=== PATIENT | male | born 1965 | race Hispanic/Latino ===

== ENCOUNTER 2021-02-17 12:13 | Inpatient (IN) | payer OTHER ==
[~2021-02-17 12:13] MED LIST: Iopamidol-370 76% 500 ML 1 ML ONE
[2021-02-17 13:01] LABS: #Lymphocytes 0.7 thou/uL (1.20-3.40); #Monocytes 0.5 thou/uL (0.11-0.59); #Neutrophils 11.1 thou/uL (1.40-6.50); %Basophils 0.1 % (0.0-1.0); %Eosinophils 0.2 % (0.0-10.0); %Lymphocytes 5.8 % (21.0-51.0); %Monocytes 3.8 % (0.0-10.0); %Neutrophils 90.2 % (42.0-75.0); Hemoglobin 12.5 g/dL (14.0-18.0); Mean Corpuscular HGB CONC 33.9 g/dL (32.0-36.0); Mean Corpuscular Hemoglobin 32.7 pg (27.0-31.0); Mean Corpuscular Volume 96.6 fL (78.0-98.0); Mean Platelet Volume 7.8 fL (7.4-10.4); Platelet Count 264 thou/uL (130-400); RBC Distribution Width 11.5 % (11.5-14.5); Red Blood Cell (RBC) Count 3.81 mill/uL (4.70-6.10); White Blood Cell (WBC) Count 12.3 thou/uL (4.8-10.8)
[2021-02-17] MEDS ORDERED: Ketorolac Tromethamine 30 MG/ML VIAL ONE (13:08)
[2021-02-17 13:26] LABS: ALT (SGPT) 25 U/L (8-55); AST (SGOT) 25 U/L (5-34); Albumin 3.6 g/dL (3.5-5.0); Alkaline Phosphatase 82 U/L (40-110); Anion Gap 13 mmol/L (10-20); BUN (Urea Nitrogen) 14 mg/dL (8.4-25.7); Bilirubin, Total 0.5 mg/dL (0.2-1.2); Calc. Creatinine Clearance 0 mL/min (70-130); Calcium 8.6 mg/dL (7.8-10.44); Carbon Dioxide 23 mmol/L (22-29); Chloride 101 mmol/L (98-107); Globulin 2.8 g/dL (2.4-3.5); Glucose 175 mg/dL (70-105); Potassium 3.6 mmol/L (3.5-5.1); Protein, Total 6.4 g/dL (6.0-8.3); Sodium 133 mmol/L (136-145)
[2021-02-17] MEDS ORDERED: Dexamethasone 10 MG/ML VIAL ONE (13:35)
[2021-02-17] MEDS ORDERED: Morphine 4 MG/ML VIAL ONE (13:43)
[2021-02-17 13:44] LABS: Bacteria/HPF None Seen HPF (None Seen); Bilirubin Negative (Negative); Blood, Urine Negative (Negative); Clarity Clear (Clear); Glucose, Urine (Dipstick) Normal (Negative); Ketone, Urine Negative (Negative); Leukocyte 25 Leu/uL (Negative); Nitrite Negative (Negative); Protein, Urine (Dipstick) 20 mg/dL (Neg-Trace); RBC/HPF 0-3 HPF (0-3); Specific Gravity, Urine 1.028 (1.002-1.036); Squamous Epithelial None Seen HPF (0-3); Urobilinogen Normal mg/dL (Less than 2); pH, Urine 6.5 (5.0-9.0)
[2021-02-17] MEDS ORDERED: Lorazepam 2 MG/ML VIAL SLOW IVP PRN (14:06)
[2021-02-17] MEDS ORDERED: Dextrose 50% Abboject 50 ML SYRINGE SLOW IVP PRN (14:06)
[2021-02-17] MEDS ORDERED: Ondansetron PF 4 MG/2 ML Vial IVP PRN (14:06)
[2021-02-17] MEDS ORDERED: Dextrose 5% in Water 1,000 ML IV PRN (14:06)
[2021-02-17] MEDS ORDERED: Ondansetron ODT 4 MG TAB PO PRN (14:06)
[2021-02-17] MEDS ORDERED: hydrALAZINE 20 MG/ML VIAL SLOW IVP PRN (14:06)
[2021-02-17] MEDS ORDERED: TETANUS, DIPHTHERIA TOX,ADULT (TDVAX) 0.5 ML VIAL IM ONE (14:11)
[2021-02-17] MEDS ORDERED: Lidocaine 2% Jelly 5 ML TUBE ONE (14:17)
[2021-02-17] MEDS ORDERED: Fentanyl 100 MCG/2 ML VIAL ONE ×3 (14:17→17:11)
[2021-02-17] MEDS ORDERED: Thrombin 5000 UNITS/5 ML VIAL ONE (14:31)
[2021-02-17] MEDS ORDERED: Lidocaine 1% PF 5 ML VIAL ONE (15:03)
[2021-02-17] MEDS ORDERED: Rocuronium Bromide 10 MG/ML (10ML VIAL) ONE (15:03)
[2021-02-17] MEDS ORDERED: PROPOFOL 200 MG/20 ML VIAL ONE (15:03)
[2021-02-17] MEDS ORDERED: Ondansetron PF 4 MG/2 ML Vial ONE (15:03)
[2021-02-17] MEDS ORDERED: Dexamethasone 20 MG/5 ML VIAL ONE (15:03)
[2021-02-17] MEDS ORDERED: Succinylcholine 200 MG/10 ml SYRINGE FS ONE (15:03)
[2021-02-17] MEDS ORDERED: Glycopyrrolate 0.2 MG/ML 5 ML SYRINGE ONE (15:03)
[2021-02-17] MEDS ORDERED: HYDROmorphone 2 MG/ML VIAL SLOW IVP PRN (17:13)
[2021-02-17] MEDS ORDERED: Ondansetron HCl/PF 4 MG/2 ML Vial IVP PRN (17:13)
[2021-02-17] MEDS ORDERED: Promethazine HCl 25 MG/ML VIAL SLOW IVP PRN (17:13)
[2021-02-17] MEDS ORDERED: Promethazine HCl 25 MG/ML VIAL IM PRN (17:13)
[2021-02-17] MEDS ORDERED: Morphine 2 MG/ML VIAL SLOW IVP PRN (17:47)
[2021-02-17] MEDS: Acetaminophen 325 MG TAB PO SCH (18:35)
[2021-02-17] MEDS: traMADol HCl 50 MG TAB PO SCH (18:36)
[2021-02-17] MEDS: Gabapentin 300 MG CAP PO SCH ×2 (18:36→21:07)
[2021-02-17 18:41] VITALS: BMI 29.6
[2021-02-17] MEDS: Dexamethasone 4 mg/ml Vial SLOW IVP SCH (21:06)
[2021-02-17] MEDS: Sodium Chloride 0.9% 1,000 ML IV SCH (21:06)
[2021-02-17] MEDS: Famotidine/PF 20 mg/2ml Vial SLOW IVP SCH (21:07)
[2021-02-17] MEDS: Insulin Regular 300 UNITS/3 ML VIAL SC PRN (21:53)
[2021-02-18] MEDS: traMADol HCl 50 MG TAB PO SCH ×5 (00:13→22:53)
[2021-02-18] MEDS: Acetaminophen 325 MG TAB PO SCH ×5 (00:13→22:52)
[2021-02-18] MEDS: traMADol HCl 50 MG TAB PO PRN (00:14)
[2021-02-18 05:30] LABS: #Lymphocytes 0.5 thou/uL (1.20-3.40); #Monocytes 0.4 thou/uL (0.11-0.59); #Neutrophils 10.6 thou/uL (1.40-6.50); %Basophils 0.1 % (0.0-1.0); %Eosinophils 0.1 % (0.0-10.0); %Lymphocytes 4.1 % (21.0-51.0); %Monocytes 3.2 % (0.0-10.0); %Neutrophils 92.5 % (42.0-75.0); Hemoglobin 11.8 g/dL (14.0-18.0); Mean Corpuscular HGB CONC 34.8 g/dL (32.0-36.0); Mean Corpuscular Hemoglobin 33.8 pg (27.0-31.0); Platelet Count 264 thou/uL (130-400); RBC Distribution Width 11.5 % (11.5-14.5); Red Blood Cell (RBC) Count 3.49 mill/uL (4.70-6.10); White Blood Cell (WBC) Count 11.4 thou/uL (4.8-10.8)
[2021-02-18] MEDS: Dexamethasone 4 mg/ml Vial SLOW IVP SCH ×3 (05:39→22:54)
[2021-02-18] MEDS: Sodium Chloride 0.9% 1,000 ML IV SCH (05:43)
[2021-02-18] MEDS: Insulin Regular 300 UNITS/3 ML VIAL SC PRN ×3 (05:48→16:56)
[2021-02-18 05:53] LABS: Phosphorus 3.3 mg/dL (2.3-4.7)
[2021-02-18 05:57] LABS: Anion Gap 17 mmol/L (10-20); BUN (Urea Nitrogen) 11 mg/dL (8.4-25.7); Calc. Creatinine Clearance 106 mL/min (70-130); Carbon Dioxide 18 mmol/L (22-29); Chloride 102 mmol/L (98-107); Glucose 189 mg/dL (70-105); Magnesium 1.8 mg/dL (1.6-2.6); Potassium 4.1 mmol/L (3.5-5.1); Sodium 133 mmol/L (136-145)
[2021-02-18] MEDS ORDERED: Dextrose 50% Abboject 50 ML SYRINGE SLOW IVP PRN (06:46)
[2021-02-18] MEDS ORDERED: Dextrose 5% in Water 1,000 ML IV PRN (06:46)
[2021-02-18] MEDS ORDERED: Magnesium 2 GM/50 ML 2 GM in Premix Bag 1 BAG IVPB SCH (07:00)
[2021-02-18] MEDS: Pregabalin 75 MG CAP PO SCH ×2 (09:00→19:43)
[2021-02-18] MEDS: Polyethylene Glycol 3350 17 GM Packet PO SCH (09:00)
[2021-02-18] MEDS: Famotidine/PF 20 mg/2ml Vial SLOW IVP SCH ×2 (09:00→19:43)
[2021-02-18 09:12] LABS: SARS-CoV-2 PCR by NAA Not Detected (NotDetected)
[2021-02-18] MEDS: Rosuvastatin 10 MG TAB PO SCH (19:43)
[2021-02-18] MEDS: Lantus 1000 UNITS/10 ML VIAL SC SCH (19:44)
[2021-02-18] MEDS ORDERED: Rosuvastatin 10 MG TAB PO SCH (21:00)
[2021-02-19] MEDS: traMADol HCl 50 MG TAB PO SCH ×4 (05:09→23:13)
[2021-02-19] MEDS: Acetaminophen 325 MG TAB PO SCH ×4 (05:09→23:13)
[2021-02-19] MEDS: Dexamethasone 4 mg/ml Vial SLOW IVP SCH ×3 (05:09→23:14)
[2021-02-19] MEDS: Insulin Regular 300 UNITS/3 ML VIAL SC PRN ×4 (05:14→19:57)
[2021-02-19 05:38] LABS: #Lymphocytes 0.8 thou/uL (1.20-3.40); #Monocytes 0.5 thou/uL (0.11-0.59); #Neutrophils 10.6 thou/uL (1.40-6.50); %Basophils 0.4 % (0.0-1.0); %Eosinophils 0.2 % (0.0-10.0); %Lymphocytes 6.5 % (21.0-51.0); %Monocytes 4.1 % (0.0-10.0); %Neutrophils 88.8 % (42.0-75.0); Hemoglobin 11.5 g/dL (14.0-18.0); Mean Corpuscular HGB CONC 32.7 g/dL (32.0-36.0); Mean Corpuscular Hemoglobin 31.9 pg (27.0-31.0); Mean Corpuscular Volume 97.5 fL (78.0-98.0); Mean Platelet Volume 8.1 fL (7.4-10.4); Platelet Count 270 thou/uL (130-400); RBC Distribution Width 11.7 % (11.5-14.5); White Blood Cell (WBC) Count 11.9 thou/uL (4.8-10.8)
[2021-02-19] MEDS ORDERED: Lisinopril 20 MG TAB PO SCH (09:00)
[2021-02-19] MEDS ORDERED: Metoprolol Tartrate 100 MG TAB PO SCH (09:00)
[2021-02-19] MEDS: Famotidine/PF 20 mg/2ml Vial SLOW IVP SCH (09:04)
[2021-02-19] MEDS: Polyethylene Glycol 3350 17 GM Packet PO SCH (09:04)
[2021-02-19] MEDS: Metoprolol Tartrate 100 MG TAB PO SCH (09:05)
[2021-02-19] MEDS: Lisinopril 20 MG TAB PO SCH (09:05)
[2021-02-19] MEDS: Pregabalin 75 MG CAP PO SCH ×2 (09:05→19:51)
[2021-02-19] MEDS ORDERED: Senokot S 8.6-50 MG TAB PO SCH (10:30)
[2021-02-19] MEDS ORDERED: Amlodipine 5 MG TAB PO SCH (10:30)
[2021-02-19] MEDS: Senokot S 8.6-50 MG TAB PO SCH (19:51)
[2021-02-19] MEDS: Rosuvastatin 10 MG TAB PO SCH (19:51)
[2021-02-19] MEDS: Fish Oil 1,000 MG CAP PO SCH (19:51)
[2021-02-19] MEDS: Lantus 1000 UNITS/10 ML VIAL SC SCH (19:56)
[2021-02-20] MEDS: Dexamethasone 4 mg/ml Vial SLOW IVP SCH ×3 (05:12→21:03)
[2021-02-20] MEDS: traMADol HCl 50 MG TAB PO SCH ×3 (05:12→18:00)
[2021-02-20] MEDS: Acetaminophen 325 MG TAB PO SCH ×3 (05:12→17:59)
[2021-02-20] MEDS: Insulin Regular 300 UNITS/3 ML VIAL SC PRN ×4 (05:42→21:03)
[2021-02-20 06:34] LABS: #Monocytes 0.4 thou/uL (0.11-0.59); #Neutrophils 11.3 thou/uL (1.40-6.50); %Basophils 0.1 % (0.0-1.0); %Eosinophils 0.2 % (0.0-10.0); %Monocytes 3.4 % (0.0-10.0); %Neutrophils 88.4 % (42.0-75.0); Hemoglobin 11.6 g/dL (14.0-18.0); Mean Corpuscular HGB CONC 32.4 g/dL (32.0-36.0); Mean Corpuscular Hemoglobin 31.7 pg (27.0-31.0); Mean Corpuscular Volume 97.8 fL (78.0-98.0); Mean Platelet Volume 8.4 fL (7.4-10.4); Platelet Count 315 thou/uL (130-400); RBC Distribution Width 11.6 % (11.5-14.5); Red Blood Cell (RBC) Count 3.66 mill/uL (4.70-6.10); White Blood Cell (WBC) Count 12.7 thou/uL (4.8-10.8)
[2021-02-20] MEDS: Pregabalin 75 MG CAP PO SCH ×2 (08:18→20:59)
[2021-02-20] MEDS: Polyethylene Glycol 3350 17 GM Packet PO SCH (08:18)
[2021-02-20] MEDS: Senokot S 8.6-50 MG TAB PO SCH ×2 (08:20→20:59)
[2021-02-20] MEDS: Lisinopril 20 MG TAB PO SCH (08:20)
[2021-02-20] MEDS: Fish Oil 1,000 MG CAP PO SCH ×2 (08:20→20:57)
[2021-02-20] MEDS: traMADol HCl 50 MG TAB PO PRN (08:21)
[2021-02-20] MEDS: Metoprolol Tartrate 100 MG TAB PO SCH (08:21)
[2021-02-20] MEDS ORDERED: Lantus 1000 UNITS/10 ML VIAL SC SCH (09:00)
[2021-02-20] MEDS ORDERED: Amlodipine 5 MG TAB PO SCH (09:00)
[2021-02-20] MEDS: Rosuvastatin 10 MG TAB PO SCH (20:58)
[2021-02-20] MEDS: Lantus 1000 UNITS/10 ML VIAL SC SCH (21:03)
[2021-02-21] MEDS: Acetaminophen 325 MG TAB PO SCH ×5 (00:07→23:28)
[2021-02-21] MEDS: traMADol HCl 50 MG TAB PO SCH ×5 (00:08→23:27)
[2021-02-21] MEDS: Insulin Regular 300 UNITS/3 ML VIAL SC PRN ×4 (06:15→21:14)
[2021-02-21] MEDS: Dexamethasone 4 mg/ml Vial SLOW IVP SCH ×3 (06:15→21:10)
[2021-02-21] MEDS: Lantus 1000 UNITS/10 ML VIAL SC SCH ×2 (09:18→21:15)
[2021-02-21] MEDS: Amlodipine 10 MG TAB PO SCH (09:20)
[2021-02-21] MEDS: Fish Oil 1,000 MG CAP PO SCH ×2 (09:20→21:10)
[2021-02-21] MEDS: Lisinopril 20 MG TAB PO SCH (09:20)
[2021-02-21] MEDS: Metoprolol Tartrate 100 MG TAB PO SCH (09:20)
[2021-02-21] MEDS: Pregabalin 75 MG CAP PO SCH ×2 (09:22→21:10)
[2021-02-21] MEDS: traMADol HCl 50 MG TAB PO PRN (09:24)
[2021-02-21] MEDS: Polyethylene Glycol 3350 17 GM Packet PO SCH (09:52)
[2021-02-21] MEDS: Senokot S 8.6-50 MG TAB PO SCH ×2 (09:52→21:11)
[2021-02-21] MEDS: Rosuvastatin 10 MG TAB PO SCH (21:10)
[2021-02-22] MEDS: traMADol HCl 50 MG TAB PO PRN (01:48)
[2021-02-22] MEDS: Insulin Regular 300 UNITS/3 ML VIAL SC PRN ×3 (05:33→16:04)
[2021-02-22] MEDS: Acetaminophen 325 MG TAB PO SCH ×4 (05:33→23:00)
[2021-02-22] MEDS: Dexamethasone 4 mg/ml Vial SLOW IVP SCH ×3 (05:33→23:01)
[2021-02-22] MEDS: traMADol HCl 50 MG TAB PO SCH ×4 (05:33→23:01)
[2021-02-22] MEDS: Pregabalin 75 MG CAP PO SCH ×2 (08:00→20:00)
[2021-02-22] MEDS: Fish Oil 1,000 MG CAP PO SCH ×2 (08:00→20:00)
[2021-02-22] MEDS: Lantus 1000 UNITS/10 ML VIAL SC SCH ×2 (08:00→20:00)
[2021-02-22] MEDS: Senokot S 8.6-50 MG TAB PO SCH ×2 (08:01→20:13)
[2021-02-22] MEDS: Metoprolol Tartrate 100 MG TAB PO SCH (08:01)
[2021-02-22] MEDS: Polyethylene Glycol 3350 17 GM Packet PO SCH (08:01)
[2021-02-22] MEDS: Amlodipine 10 MG TAB PO SCH (08:01)
[2021-02-22] MEDS: Lisinopril 20 MG TAB PO SCH (08:01)
[2021-02-22] MEDS: Rosuvastatin 10 MG TAB PO SCH (20:01)
[2021-02-23] MEDS: traMADol HCl 50 MG TAB PO PRN (00:38)
[2021-02-23 03:26] VITALS: TEMP 98.1
[2021-02-23] MEDS: Acetaminophen 325 MG TAB PO SCH ×2 (05:25→11:01)
[2021-02-23] MEDS: traMADol HCl 50 MG TAB PO SCH ×2 (05:25→11:01)
[2021-02-23] MEDS: Dexamethasone 4 mg/ml Vial SLOW IVP SCH (05:26)
[2021-02-23] MEDS: Insulin Regular 300 UNITS/3 ML VIAL SC PRN (05:29)
[2021-02-23] MEDS: Senokot S 8.6-50 MG TAB PO SCH (07:35)
[2021-02-23] MEDS: Pregabalin 75 MG CAP PO SCH (07:35)
[2021-02-23] MEDS: Fish Oil 1,000 MG CAP PO SCH (07:35)
[2021-02-23] MEDS: Lantus 1000 UNITS/10 ML VIAL SC SCH (07:36)
[2021-02-23] MEDS: Amlodipine 10 MG TAB PO SCH (07:36)
[2021-02-23] MEDS: Lisinopril 20 MG TAB PO SCH (07:36)
[2021-02-23] MEDS: Metoprolol Tartrate 100 MG TAB PO SCH (07:36)
[2021-02-23] MEDS: Polyethylene Glycol 3350 17 GM Packet PO SCH (07:36)
[2021-02-23 07:41] VITALS: BP 144/72
[2021-02-23] MEDS ORDERED: Dexamethasone 4 MG TAB PO SCH (09:00)
[2021-02-26] MEDS ORDERED: Dexamethasone 1 MG TAB PO SCH (09:00)
[2021-03-01] MEDS ORDERED: Dexamethasone 1 MG TAB PO SCH (09:00)
== END 2021-02-23 11:54 | DRG 460 ==
LOC: ERS 12:13 → SDC 15:02 → SJJU 17:57
PROVIDERS: ADMIT Surgery; ATTEND Surgery
PROC: 0SG1071 Fusion of 2 or more Lumbar Vertebral Joints with Autologous Tissue Substitute, Posterior Approach, Posterior Column, Open Approach (ICD-10-PCS; principal; 2021-02-17)
PROC: 01NB0ZZ Release Lumbar Nerve, Open Approach (ICD-10-PCS; 2021-02-17)
PROC: 00UT0KZ Supplement Spinal Meninges with Nonautologous Tissue Substitute, Open Approach (ICD-10-PCS; 2021-02-17)
DX: S32.011A Stable burst fracture of first lumbar vertebra, initial encounter for closed fracture (principal); G96.09 Other spinal cerebrospinal fluid leak; S32.021A Stable burst fracture of second lumbar vertebra, initial encounter for closed fracture; S32.031A Stable burst fracture of third lumbar vertebra, initial encounter for closed fracture; W11.XXXA Fall on and from ladder, initial encounter; I10 Essential (primary) hypertension; E11.9 Type 2 diabetes mellitus without complications; E78.5 Hyperlipidemia, unspecified; Z20.822 Contact with and (suspected) exposure to COVID-19; R33.9 Retention of urine, unspecified
CPT/HCPCS: 29105; 36415; 36416; 70450; 71045; 72125; 74177; 76000; 80048; 80053; 81003; 81015; 83735; 84100; 85025; 87635; 90714; 96374; 96375; C1713; C1768; G0390; J0690; J1100; J1815; J1885; J2270; J2405; J2704; J3010; J3370; J3475; J3490; J8540; Q9967; S0028; U0003; U0005

== ENCOUNTER 2021-03-04 23:53 | Inpatient (IN) | payer OTHER ==
[2021-03-05] MEDS ORDERED: Acetaminophen/Codeine 30-300mg Tablet PO PRN (00:31)
[2021-03-05] MEDS ORDERED: Ondansetron PF 4 MG/2 ML Vial IVP PRN (00:31)
[2021-03-05] MEDS ORDERED: Bisacodyl 10 MG SUPP PR PRN ×2 (00:31→03:51)
[2021-03-05] MEDS ORDERED: diphenhydrAMINE 50 MG/ML VIAL IVP PRN (00:31)
[2021-03-05] MEDS ORDERED: Morphine 4 MG/ML VIAL SLOW IVP PRN (00:38)
[2021-03-05] MEDS: Sodium Chloride 0.9% 1,000 ML IV SCH ×3 (00:57→21:05)
[2021-03-05] MEDS: CEFAZOLIN 2 GM in Premix Bag 1 BAG IVPB SCH ×3 (00:58→16:51)
[2021-03-05] MEDS ORDERED: Lidocaine 1% w/Epinephrine 1:100K 20 ML VIAL FS SCH (01:00)
[2021-03-05] MEDS: Acetaminophen/Codeine 30-300mg Tablet PO PRN (01:00)
[2021-03-05] MEDS ORDERED: Acetaminophen 325 MG TAB PO PRN ×3 (03:49→09:06)
[2021-03-05] MEDS ORDERED: Cepastat Lozenges 1 LOZ PO PRN (03:50)
[2021-03-05] MEDS ORDERED: Calcium Carbonate 500 MG ChewTAB PO PRN ×4 (03:52→09:06)
[2021-03-05] MEDS ORDERED: cloNIDine 0.1 MG TAB PO PRN ×2 (03:54→09:06)
[2021-03-05] MEDS ORDERED: diphenhydrAMINE 25 MG CAP PO PRN ×2 (04:00→09:06)
[2021-03-05] MEDS ORDERED: GUAIFENESIN SF SOLN 200 MG/10 ML UDCUP PO PRN ×2 (04:04→09:06)
[2021-03-05] MEDS ORDERED: Milk Of Magnesia 30 ML UDCUP PO PRN (04:06)
[2021-03-05] MEDS ORDERED: Loperamide HCl 2 MG CAP PO PRN ×3 (04:06→09:23)
[2021-03-05] MEDS ORDERED: Senokot S 8.6-50 MG TAB PO PRN ×2 (04:12→09:06)
[2021-03-05] MEDS ORDERED: traMADol HCl 50 MG TAB PO PRN (04:14)
[2021-03-05] MEDS: traMADol HCl 50 MG TAB PO PRN ×2 (06:06→20:36)
[2021-03-05] MEDS: Tamsulosin HCl 0.4 MG CAP PO SCH (06:14)
[2021-03-05 06:17] VITALS: BMI 25.5
[2021-03-05] MEDS ORDERED: Glimepiride 2 MG TAB PO SCH (07:30)
[2021-03-05] MEDS ORDERED: metFORMIN 500 MG TAB PO SCH (08:00)
[2021-03-05 08:21] LABS: SARS-CoV-2 NAA Rapid Test Not Detected (NotDetected)
[2021-03-05] MEDS ORDERED: Famotidine 20 MG TAB PO SCH (09:00)
[2021-03-05] MEDS ORDERED: Fish Oil 1,000 MG CAP PO SCH (09:00)
[2021-03-05] MEDS ORDERED: Pregabalin 75 MG CAP PO SCH (09:00)
[2021-03-05] MEDS ORDERED: Sulfameth/Trimethoprim DS 800-160mg TAB PO SCH (09:00)
[2021-03-05] MEDS ORDERED: Senokot S 8.6-50 MG TAB PO SCH ×2 (09:00→21:00)
[2021-03-05] MEDS ORDERED: Lisinopril 20 MG TAB PO SCH (09:00)
[2021-03-05] MEDS ORDERED: Polyethylene Glycol 3350 17 GM Packet PO SCH (09:00)
[2021-03-05] MEDS ORDERED: Metoprolol Tartrate 100 MG TAB PO SCH (09:00)
[2021-03-05] MEDS ORDERED: Cephalexin 250 MG CAP PO SCH (09:00)
[2021-03-05] MEDS ORDERED: LACTULOSE 20 GM PO PRN (09:06)
[2021-03-05] MEDS ORDERED: BENZOCAINE PO PRN ×2 (09:06→09:27)
[2021-03-05 09:39] LABS: INR-International Normal Ratio 0.9; PTT 25.3 sec (22.9-36.1); Prothrombin Time 12.1 sec (12.0-14.7)
[2021-03-05] MEDS ORDERED: Non-Formulary Item 1 EACH (Cephalexin [Keflex] 500 MG Cap) PO SCH (13:00)
[2021-03-05] MEDS: Cephalexin 250 MG CAP PO SCH ×3 (13:03→20:36)
[2021-03-05] MEDS: Acetaminophen ER (8hr) 650 MG TAB PO SCH ×3 (13:04→20:37)
[2021-03-05] MEDS: metFORMIN 500 MG TAB PO SCH (16:52)
[2021-03-05] MEDS: Fish Oil 1,000 MG CAP PO SCH (20:36)
[2021-03-05] MEDS: Sulfameth/Trimethoprim DS 800-160mg TAB PO SCH (20:37)
[2021-03-05] MEDS: Pregabalin 75 MG CAP PO SCH (20:37)
[2021-03-05] MEDS: Amlodipine 5 MG TAB PO SCH (20:37)
[2021-03-05] MEDS: Rosuvastatin 10 MG TAB PO SCH (20:37)
[2021-03-05] MEDS: Famotidine 20 MG TAB PO SCH (20:38)
[2021-03-05] MEDS: Senokot S 8.6-50 MG TAB PO SCH (20:38)
[2021-03-05] MEDS ORDERED: OMEGA PO SCH (21:00)
[2021-03-05] MEDS ORDERED: Rosuvastatin 10 MG TAB PO SCH ×2 (21:00)
[2021-03-05] MEDS ORDERED: Amlodipine 5 MG TAB PO SCH (21:00)
[2021-03-05] MEDS ORDERED: [UNRECOGNIZED DRUG - OTHER] PO SCH (21:00)
[2021-03-05] MEDS ORDERED: Atorvastatin Calcium 20 MG TAB PO SCH (21:00)
[2021-03-05] MEDS ORDERED: FISH OIL PO SCH (21:00)
[2021-03-05] MEDS ORDERED: EPA PO SCH (21:00)
[2021-03-05] MEDS ORDERED: DHA PO SCH (21:00)
[2021-03-06] MEDS: Acetaminophen/Codeine 30-300mg Tablet PO PRN ×2 (00:24→21:18)
[2021-03-06] MEDS: CEFAZOLIN 2 GM in Premix Bag 1 BAG IVPB SCH ×3 (00:24→16:32)
[2021-03-06] MEDS: Acetaminophen ER (8hr) 650 MG TAB PO SCH ×6 (00:27→21:20)
[2021-03-06] MEDS: Tamsulosin HCl 0.4 MG CAP PO SCH (06:41)
[2021-03-06] MEDS: Famotidine 20 MG TAB PO SCH ×2 (08:01→21:19)
[2021-03-06] MEDS: Senokot S 8.6-50 MG TAB PO SCH ×2 (08:01→21:19)
[2021-03-06] MEDS: Polyethylene Glycol 3350 17 GM Packet PO SCH (08:01)
[2021-03-06] MEDS: Lisinopril 20 MG TAB PO SCH (08:02)
[2021-03-06] MEDS: Sulfameth/Trimethoprim DS 800-160mg TAB PO SCH ×2 (08:02→21:20)
[2021-03-06] MEDS: metFORMIN 500 MG TAB PO SCH ×2 (08:02→16:32)
[2021-03-06] MEDS: Pregabalin 75 MG CAP PO SCH ×2 (08:02→21:19)
[2021-03-06] MEDS: Fish Oil 1,000 MG CAP PO SCH ×2 (08:02→21:20)
[2021-03-06] MEDS: Metoprolol Tartrate 100 MG TAB PO SCH (08:03)
[2021-03-06] MEDS: Glimepiride 2 MG TAB PO SCH (08:03)
[2021-03-06] MEDS ORDERED: Metoprolol Tartrate 100 MG TAB PO SCH (09:00)
[2021-03-06] MEDS ORDERED: Lisinopril 20 MG TAB PO SCH (09:00)
[2021-03-06] MEDS: Sodium Chloride 0.9% 1,000 ML IV SCH (16:32)
[2021-03-06] MEDS: Rosuvastatin 10 MG TAB PO SCH (21:19)
[2021-03-06] MEDS: Amlodipine 5 MG TAB PO SCH (21:19)
[2021-03-07] MEDS: Sodium Chloride 0.9% 1,000 ML IV SCH ×2 (00:02→13:00)
[2021-03-07] MEDS: CEFAZOLIN 2 GM in Premix Bag 1 BAG IVPB SCH ×3 (00:02→16:38)
[2021-03-07] MEDS: Acetaminophen ER (8hr) 650 MG TAB PO SCH ×6 (00:16→20:48)
[2021-03-07] MEDS: Acetaminophen/Codeine 30-300mg Tablet PO PRN (05:19)
[2021-03-07] MEDS: Tamsulosin HCl 0.4 MG CAP PO SCH (05:24)
[2021-03-07] MEDS: metFORMIN 500 MG TAB PO SCH ×2 (09:25→16:38)
[2021-03-07] MEDS: Fish Oil 1,000 MG CAP PO SCH ×2 (09:25→20:47)
[2021-03-07] MEDS: Famotidine 20 MG TAB PO SCH ×2 (09:25→20:48)
[2021-03-07] MEDS: Lisinopril 20 MG TAB PO SCH (09:25)
[2021-03-07] MEDS: Pregabalin 75 MG CAP PO SCH ×2 (09:25→20:48)
[2021-03-07] MEDS: Sulfameth/Trimethoprim DS 800-160mg TAB PO SCH ×2 (09:25→20:48)
[2021-03-07] MEDS: Metoprolol Tartrate 100 MG TAB PO SCH (09:25)
[2021-03-07] MEDS: Senokot S 8.6-50 MG TAB PO SCH ×2 (09:25→20:48)
[2021-03-07] MEDS: Glimepiride 2 MG TAB PO SCH (09:26)
[2021-03-07] MEDS: Polyethylene Glycol 3350 17 GM Packet PO SCH (09:26)
[2021-03-07] MEDS: Amlodipine 5 MG TAB PO SCH (20:47)
[2021-03-07] MEDS: Rosuvastatin 10 MG TAB PO SCH (20:48)
[2021-03-08] MEDS: CEFAZOLIN 2 GM in Premix Bag 1 BAG IVPB SCH ×3 (00:23→17:51)
[2021-03-08] MEDS: Acetaminophen ER (8hr) 650 MG TAB PO SCH ×6 (00:26→20:09)
[2021-03-08] MEDS: Sodium Chloride 0.9% 1,000 ML IV SCH ×2 (00:27→17:52)
[2021-03-08] MEDS: Acetaminophen/Codeine 30-300mg Tablet PO PRN (02:23)
[2021-03-08] MEDS: Tamsulosin HCl 0.4 MG CAP PO SCH (06:03)
[2021-03-08] MEDS: Famotidine 20 MG TAB PO SCH ×2 (08:13→20:09)
[2021-03-08] MEDS: Senokot S 8.6-50 MG TAB PO SCH ×2 (08:13→20:09)
[2021-03-08] MEDS: Fish Oil 1,000 MG CAP PO SCH ×2 (08:14→20:09)
[2021-03-08] MEDS: Lisinopril 20 MG TAB PO SCH (08:14)
[2021-03-08] MEDS: Pregabalin 75 MG CAP PO SCH ×2 (08:14→20:09)
[2021-03-08] MEDS: Glimepiride 2 MG TAB PO SCH (08:14)
[2021-03-08] MEDS: metFORMIN 500 MG TAB PO SCH ×2 (08:14→17:51)
[2021-03-08] MEDS: Polyethylene Glycol 3350 17 GM Packet PO SCH (08:15)
[2021-03-08] MEDS: Metoprolol Tartrate 100 MG TAB PO SCH (08:15)
[2021-03-08] MEDS: Amlodipine 5 MG TAB PO SCH (20:08)
[2021-03-08] MEDS: Rosuvastatin 10 MG TAB PO SCH (20:09)
[2021-03-09] MEDS: CEFAZOLIN 2 GM in Premix Bag 1 BAG IVPB SCH ×3 (00:11→17:34)
[2021-03-09] MEDS: Acetaminophen ER (8hr) 650 MG TAB PO SCH ×6 (00:11→20:11)
[2021-03-09] MEDS: Acetaminophen/Codeine 30-300mg Tablet PO PRN (02:20)
[2021-03-09] MEDS: Tamsulosin HCl 0.4 MG CAP PO SCH (05:58)
[2021-03-09] MEDS: Famotidine 20 MG TAB PO SCH ×2 (08:11→20:11)
[2021-03-09] MEDS: Pregabalin 75 MG CAP PO SCH ×2 (08:11→20:09)
[2021-03-09] MEDS: Fish Oil 1,000 MG CAP PO SCH ×2 (08:11→20:11)
[2021-03-09] MEDS: Metoprolol Tartrate 100 MG TAB PO SCH (08:12)
[2021-03-09] MEDS: metFORMIN 500 MG TAB PO SCH ×2 (08:12→17:34)
[2021-03-09] MEDS: Lisinopril 20 MG TAB PO SCH (08:12)
[2021-03-09] MEDS: Polyethylene Glycol 3350 17 GM Packet PO SCH (08:13)
[2021-03-09] MEDS: Senokot S 8.6-50 MG TAB PO SCH ×2 (08:13→20:11)
[2021-03-09] MEDS: Glimepiride 2 MG TAB PO SCH (08:48)
[2021-03-09] MEDS: Sodium Chloride 0.9% 1,000 ML IV SCH (10:08)
[2021-03-09] MEDS ORDERED: Lidocaine 1% (PF) 30 ML VIAL ONE (16:43)
[2021-03-09] MEDS: Rosuvastatin 10 MG TAB PO SCH (20:09)
[2021-03-09] MEDS: Amlodipine 5 MG TAB PO SCH (20:10)
[2021-03-10] MEDS: CEFAZOLIN 2 GM in Premix Bag 1 BAG IVPB SCH ×2 (00:10→08:56)
[2021-03-10] MEDS: Acetaminophen ER (8hr) 650 MG TAB PO SCH ×4 (00:10→13:16)
[2021-03-10] MEDS: Sodium Chloride 0.9% 1,000 ML IV SCH ×2 (01:31→15:08)
[2021-03-10] MEDS: Tamsulosin HCl 0.4 MG CAP PO SCH (05:42)
[2021-03-10] MEDS: Famotidine 20 MG TAB PO SCH (08:51)
[2021-03-10] MEDS: Glimepiride 2 MG TAB PO SCH (08:51)
[2021-03-10] MEDS: metFORMIN 500 MG TAB PO SCH (08:51)
[2021-03-10] MEDS: Fish Oil 1,000 MG CAP PO SCH (08:52)
[2021-03-10] MEDS: Lisinopril 20 MG TAB PO SCH (08:52)
[2021-03-10] MEDS: Pregabalin 75 MG CAP PO SCH (08:52)
[2021-03-10] MEDS: Metoprolol Tartrate 100 MG TAB PO SCH (08:52)
[2021-03-10] MEDS: Polyethylene Glycol 3350 17 GM Packet PO SCH (08:54)
[2021-03-10] MEDS: Senokot S 8.6-50 MG TAB PO SCH (08:54)
[2021-03-10 15:53] VITALS: BP 118/69; TEMP 98.8
== END 2021-03-10 17:53 | DRG 93 ==
LOC: SURG B 23:53
PROVIDERS: ADMIT Neurological Surgery; ATTEND Neurological Surgery
PROC: 009 Central Nervous System and Cranial Nerves, Drainage (ICD-10-PCS; principal; 2021-03-05)
DX: G96.09 Other spinal cerebrospinal fluid leak (principal); Z20.822 Contact with and (suspected) exposure to COVID-19; Z23 Encounter for immunization; I10 Essential (primary) hypertension; E11.9 Type 2 diabetes mellitus without complications; E78.00 Pure hypercholesterolemia, unspecified; Z98.1 Arthrodesis status; Y83.8 Other surgical procedures as the cause of abnormal reaction of the patient, or of later complication, without mention of misadventure at the time of the procedure; Z79.82 Long term (current) use of aspirin; Z79.899 Other long term (current) drug therapy; Z79.84 Long term (current) use of oral hypoglycemic drugs
CPT/HCPCS: 36415; 36416; 62268; 72148; 77002; 85610; 85730; 90471; 90732; G0009; J0690; J2001; U0002

== ENCOUNTER 2021-03-23 08:26 | Outpatient (CLI) | payer BC, OTHER | END 2021-03-23 08:27 | disposition home or self-care (01) | LOC: TBSIIMAG 08:26 | PROVIDERS: ATTEND Physician Assistant | DX: S32.031D Stable burst fracture of third lumbar vertebra, subsequent encounter for fracture with routine healing (principal) | CPT/HCPCS: 72100 ==

== ENCOUNTER 2021-04-21 09:34 | Outpatient (CLI) | payer BC, OTHER | END 2021-04-21 09:35 | disposition home or self-care (01) | LOC: TBSI PT 09:34 | PROVIDERS: ATTEND Neurological Surgery | DX: S24.101A Unspecified injury at T1 level of thoracic spinal cord, initial encounter (principal) | CPT/HCPCS: 72100 ==

== ENCOUNTER 2022-10-11 07:04 | Day surgery (SDC) | payer OTHER ==
[2022-09-24 14:29] VITALS: BMI 27.3
[~2022-10-11 07:04] MED LIST changes: +FLU VACC QS2022-23(6MOS UP)/PF 60 MCG/0.5 ML SYRINGE IM ONE; -Iopamidol-370 76% 500 ML 1 ML ONE
[2022-10-11 08:59] VITALS: BP 137/81; TEMP 98.2
[2022-10-11] MEDS ORDERED: Iopamidol-M 200 41% 10 ML VIAL FS ONE (16:05)
== END 2022-10-11 09:16 | disposition home or self-care (01) ==
LOC: RAD 07:04
PROVIDERS: ATTEND Neurological Surgery
PROC: B01B1ZZ Fluoroscopy of Spinal Cord using Low Osmolar Contrast (ICD-10-PCS; principal; 2022-10-11)
DX: S32.031A Stable burst fracture of third lumbar vertebra, initial encounter for closed fracture (principal); M47.817 Spondylosis without myelopathy or radiculopathy, lumbosacral region; M51.16 Intervertebral disc disorders with radiculopathy, lumbar region; M47.26 Other spondylosis with radiculopathy, lumbar region; M43.16 Spondylolisthesis, lumbar region; M48.061 Spinal stenosis, lumbar region without neurogenic claudication; M48.07 Spinal stenosis, lumbosacral region; Z79.82 Long term (current) use of aspirin; Z79.84 Long term (current) use of oral hypoglycemic drugs; Z79.899 Other long term (current) drug therapy; Z98.1 Arthrodesis status
CPT/HCPCS: 62304; 72132; Q9966